=== PATIENT | male | born 1980 | race African-American/Black ===

== ENCOUNTER 2018-03-27 10:41 | Emergency (ER) | payer OTHER, MEDICAID ==
[2018-03-27 10:46] VITALS: BP 112/75
--- NOTE | 2018-03-27 11:13 | ER Document Report ---
HPI - HPI Pain Level: 4 Notes: Patient is a 37-year-old male with no significant past medical history who presents to the ED complaining of left arm pain 1 day. Patient states that at work he is pushing around a lot of heavy objects and noticed the pain starting at that time. Patient states that the pain primarily is near his triceps inferiorly and to his trapezius muscle on the left side. The pains do not radiate otherwise. He denies any drug allergies, smoking, IV drug use. Patient states that he is primarily here for a work note because he missed work today. Denies any headache, fever, neck pain, URI, sore throat, chest pain, palpitations, syncope, cough, shortness of breath, wheeze, dyspnea, abdominal pain, nausea/vomiting/diarrhea, urinary retention, dysuria, hematuria, loss of control of bowel or bladder, numbness/tingling, saddle anesthesia, muscle paralysis/weakness, or rash. - ROS Systems Reviewed and Negative: Yes All other systems reviewed and negative - CONSTITUTIONAL Constitutional: DENIES: Fever, Chills - EENT EENT: DENIES: Sore Throat, Ear Pain, Eye problems - NEURO Neurology: DENIES: Headache, Weakness, Vision blurred, Dizzinesss / Vertigo - CARDIOVASCULAR Cardiovascular: DENIES: Chest pain - RESPIRATORY Respiratory: DENIES: Trouble Breathing, Coughing - GASTROINTESTINAL Gastrointestinal: DENIES: Abdominal Pain, Black / Bloody Stools - URINARY Urinary: DENIES: Dysuria, Urgency, Frequency - MUSCULOSKELETAL Musculoskeletal: REPORTS: Extremity pain - left arm Past Medical History - Social History Smoking Status: Unknown if Ever Smoked Chew tobacco use (# tins/day): No Frequency of alcohol use: None Drug Abuse: None Family History: None, Reviewed & Not Pertinent Patient has suicidal ideation: No Patient has homicidal ideation: No Renal/ Medical History: Denies: Hx Peritoneal Dialysis - Immunizations Immunizations up to date: Yes Hx Diphtheria, Pertussis, Tetanus Vaccination: Yes Vertical Provider Document - CONSTITUTIONAL Agree With Documented VS: Yes Notes: PHYSICAL EXAMINATION: GENERAL: Well-appearing, well-nourished and in no acute distress. HEAD: Atraumatic, normocephalic. NECK: Normal range of motion, supple without lymphadenopathy. Spurling neg. Non -tender. + tenderness to the left trap mm with mild spasming noted. LUNGS: Breath sounds clear to auscultation bilaterally and equal. No wheezes rales or rhonchi. HEART: Regular rate and rhythm without murmurs, rubs, gallops. Musculoskeletal: Left arm: No erythema, swelling, deformity, or ecchymosis noted. FROM to passive/active. Strength 5+/5. N/V intact distal. No bony tenderness. + mild tenderness to distal triceps tendon area. Extremities: No cyanosis, clubbing, or edema b/l. Peripheral pulses 2+. Capillary refill less than 3 seconds. NEUROLOGICAL: Normal speech, normal gait. Normal sensory, motor exams PSYCH: Normal mood, normal affect. SKIN: Warm, Dry, normal turgor, no rashes or lesions noted. - INFECTION CONTROL TRAVEL OUTSIDE OF THE [place] IN LAST 30 DAYS: No Course - Re-evaluation Re-evalutation: 03/27/18 11:19 Patient is an afebrile, well-hydrated, 37-year-old male who presents to the ED with left trapezius muscle spasming/strain as well as left arm pain, suspected tendinitis to the left arm. Vitals are acceptable. PE is otherwise unremarkable. There are no signs of infection. No labs or imaging warranted at this time based on H&P. He has no significant tachycardia, tachypnea, or hypoxia. Exam findings correlated with his complaint. Low suspicion for any disc herniation causing severe spinal stenosis, septic joint, tendon/ligament rupture, neurovascular compromise. I will send him home with a prescription for naproxen as well as baclofen. Conservative measures otherwise for symptoms. Recheck with your PCM in 3-5 days. Consider consult with orthopedics. Return to the ED with any worsening/concerning symptoms otherwise as reviewed discharge. Patient is in agreement. - Vital Signs Vital signs: Temp Pulse Resp BP Pulse Ox 98.7 F 70 18 112/75 98 03/27/18 10:44 03/27/18 10:44 03/27/18 10:44 03/27/18 10:44 03/27/18 10:44 Discharge - Discharge Clinical Impression: Left arm pain Strain of left trapezius muscle Qualifiers: Encounter type: initial encounter Qualified Code(s): S46.812A - Strain of other muscles, fascia and tendons at shoulder and upper arm level, left arm, initial encounter Condition: Stable Disposition: HOME, SELF-CARE Instructions: Muscle Relaxers ([facility]) Additional Instructions: Rest, Ice, Compression, Elevation Tylenol/ibuprofen as needed Light stretches daily Strength exercises as able Moist heat and massage may help F/u with your PCP in 3-5 days for a recheck Consider consult(s) with Orthopedics/physical therapy for ongoing/worsening symptoms Return to the ED with any worsening symptoms and/or development of fever, headache, chest pain, palpitations, syncope, shortness of breath, trouble breathing, abdominal pain, n/v/d, muscle weakness/paralysis, numbness/tingling, swelling, redness, or other worsening symptoms that are concerning to you. Prescriptions: Baclofen [Baclofen 10 mg Tablet] 5 - 10 mg PO BID PRN #10 tablet PRN Reason: Naproxen 500 mg PO BID PRN #30 tablet PRN Reason: Forms: Return to Work Referrals: [facility] [Provider Group] - Follow up as needed
== END 2018-03-27 11:19 | disposition home or self-care (01) ==
LOC: ER 10:41
DX: S46.812A Strain of other muscles, fascia and tendons at shoulder and upper arm level, left arm, initial encounter (principal); M79.602 Pain in left arm; M62.830 Muscle spasm of back; X50.9XXA Other and unspecified overexertion or strenuous movements or postures, initial encounter; Y99.0 Civilian activity done for income or pay
CPT/HCPCS: 99283

== ENCOUNTER 2018-05-27 21:31 | Emergency (ER) | payer MEDICAID, OTHER ==
--- NOTE | 2018-05-27 23:27 | ER Document Report ---
ED General - General Chief Complaint: Cold Symptoms Stated Complaint: COUGH Time Seen by Provider: 05/27/18 23:27 Mode of Arrival: Ambulatory Information source: Patient TRAVEL OUTSIDE OF THE [place] IN LAST 30 DAYS: No - HPI Notes: 37-year-old male presents to the emergency department with report of cough congestion for the last week growing worse. The patient denies any chest pain or difficulty breathing or abdominal pain or nausea or vomiting or constipation or diarrhea. He reports no pharyngitis or earache. No skin rash. Patient does smoke and he was counseled about quitting smoking. - Related Data Allergies/Adverse Reactions: No Known Allergies Allergy (Verified 03/27/18 10:42) Past Medical History - General Information source: Patient - Social History Smoking Status: Current Every Day Smoker Chew tobacco use (# tins/day): No Frequency of alcohol use: None Drug Abuse: None Lives with: Family Family History: None, Reviewed & Not Pertinent Patient has suicidal ideation: No Patient has homicidal ideation: No Renal/ Medical History: Denies: Hx Peritoneal Dialysis - Immunizations Immunizations up to date: Yes Hx Diphtheria, Pertussis, Tetanus Vaccination: Yes Review of Systems - Review of Systems -: Yes All other systems reviewed and negative Physical Exam - Vital signs Vitals: Temp Pulse Resp BP Pulse Ox 98.3 F 91 18 107/79 98 05/27/18 21:38 05/27/18 21:38 05/27/18 21:38 05/27/18 21:38 05/27/18 21:38 - Notes Notes: PHYSICAL EXAMINATION: GENERAL: Well-appearing, well-nourished and in no acute distress. HEAD: Atraumatic, normocephalic. EYES: Pupils equal round and reactive to light, extraocular movements intact, sclera anicteric, conjunctiva are normal. ENT: oropharynx clear without exudates. Moist mucous membranes. Nose shows coryza. NECK: Normal range of motion, supple without lymphadenopathy LUNGS: Breath sounds coarse to auscultation bilaterally and equal. No gross wheezes rales or rhonchi. HEART: Regular rate and rhythm without murmurs ABDOMEN: Soft, nontender, nondistended abdomen. No guarding, no rebound. No masses appreciated. Musculoskeletal: Normal range of motion, no pitting or edema. No cyanosis. NEUROLOGICAL: Cranial nerves grossly intact. Normal speech, normal gait. Normal sensory, motor exams PSYCH: Normal mood, normal affect. SKIN: Warm, Dry, normal turgor, no rashes or lesions noted. Course - Re-evaluation Re-evalutation: 05/28/18 02:12 Patient was counseled about quitting smoking. He was given Mucinex and Zithromax. No clinical suggestion for pneumonia or hypoxia or significant reactive airways disease. - Vital Signs Vital signs: Temp Pulse Resp BP Pulse Ox 97.9 F 81 18 111/69 99 05/27/18 23:38 05/27/18 23:38 05/27/18 23:38 05/27/18 23:38 05/27/18 23:38 Discharge - Discharge Clinical Impression: Bronchitis Condition: Stable Disposition: HOME, SELF-CARE Instructions: Bronchitis ([facility]), Stop Smoking ([facility]) Additional Instructions: Drink plenty of fluids. Stop smoking. Prescriptions: Guaifenesin [Mucinex] 600 mg PO Q12HP PRN #20 tablet.sa PRN Reason: Azithromycin [Zithromax 250 mg Tablet] 250 mg PO DAILY #4 tablet Forms: Return to Work
[2018-05-27] MEDS ORDERED: AZITHROMYCIN 250 MG TABLET PO ONE (23:33)
[2018-05-27] MEDS ORDERED: GUAIFENESIN 600 MG TABLET.SA PO ONE (23:33)
[2018-05-27 23:39] VITALS: BP 111/69
== END 2018-05-27 23:41 | disposition home or self-care (01) ==
LOC: ER 21:31
DX: J40 Bronchitis, not specified as acute or chronic (principal); F17.210 Nicotine dependence, cigarettes, uncomplicated
CPT/HCPCS: 99283; Q0144; J3490